=== PATIENT | male | born 1945 | race Caucasian/White ===

== ENCOUNTER 2023-05-27 14:32 | Outpatient (AMB) | payer MEDICARE, SELFPAY ==
--- NOTE | 2023-05-27 09:31 | MHC.OFFVISPS ---
Intake Vital Signs 05/27/23 09:32 Height 5 ft 11 in Weight 173 lb Intake Visit Reasons: depression, CEZAR (generalized anxiety disorder) Gum Remover Required: No Allergies No Known Allergies [No Known Allergies*] Allergy (Unverified 11/23/19 19:15) Medication List - Last Reconciled 05/27/23 by Maryuri Gutierrez APRN alprazolam mg PO amitriptyline 10 mg PO BEDTIME latanoprost 0.005% drsachin ophthalmic (eye) lisinopril 2.5 mg PO DAILY olanzapine 2.5 mg PO BEDTIME sertraline 25 mg PO DAILY sertraline 150 mg PO DAILY tamsulosin 0.4 mg PO DAILY HPI- Psychiatric Chief Complaint: depression, CEZAR (generalized anxiety disorder) HPI Narrative: Pt and report no significant changes; he reports feeling slightly better; he is still avoidant of going out of the house but has gone out at times despite reluctance. they went to [place] to visit their sons for Dustin and spend time with grandson. Pt was able to enjoy seeing sons and grandson. 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 He has taken a break from monthly ECT at [facility] after completing full series and months of maintenance. . He presents with brighter affect; more spontaneous speech; alert, laughing and joking a little in session; smiles more easily. . He and report less anxiety and worry. He is adherent with meds; His BP is stable. He denies SI or HI. he is sleeping well. No dizziness, no fainting. no sedation. no other medical changes Past Psychiatric History: IPLOC- 2020 at [facility], [place] 2019 Depression started last 2017 after returning from [place] visiting his son, he misses them (his sons) and doesn't like to travel, stopped going to the [employer] evening bike class and stopped his normal 3 mile walks, stopped playing golf once a week with his friends, stopped reading daily newspaper and stopped watching most TV news. Previously had been on xanax prn his whole adult life - usually only took 3-4 times a week In 2019 pt had no response to TMS. he had consult with Dr. Castillo and he recommended ECT for depression with psychosis; (delusion about IRS); In interim, I spoke with DR yolie De La Rosa re: TMS and Dr. Castillo about ECT consult and impression; Ppt did 8-9 sessions of ECT and clearly less depressed although he did not agree with that. He was more spontaneous and more social after ECT. He went golfing several times with friend. out of house more; taking walks with reports. FAILED Medication Trials: lamictal - unknown stopped in hospital celexa-ineffective xanax for over 10 years which he managed very wellbutrin- agitated rexulti- ineffective abilify- ineffective zyprexa-ineffective prozac-ineffective lexapro- orthostatic hypotension Trintellix-ineffective Panic attacks: Yes Agoraphobia: Yes Separation anxiety disorder: No Social phobia: Yes Specific phobia: No Hypochondriasis: Yes Body dysmorphic disorder: Yes Obsessive compulsive disorder: No Generalized anxiety: Yes Post traumatic stress disorder: No Acute stress disorder: No Previous psychiatric history: Yes Previous inpatient psychiatric hospitalization: Yes Other previous psychiatric treatment programs: partial hospital program History of suicidal ideation: Yes History of suicide attempt: No Medically hospitalized: No History of self injurious behavior: No History of violence: No Current/previous psychiatrist: sherif Subjective Subjective Subjective Medication Compliance: Yes Side effects from medications: No Review of Systems Medical Review of Systems: unchanged Mental Status Exam Mental Status Exam Patient Appearance: Well Grooomed and Appropriate Patient Orientation: Person, Place, Time and Situation Level of Consciousness: Awake and Appropriate Patient Behavior: Appropriate and Good Eye Contact Mood Description: Withdrawn Affect Description: Anxious Patient Cognition Impaired: No Ability to Follow Directions: Good Speech Pattern: Clear and Long Pauses Memory Description: Intact Hallucinations: None Delusions: Not Present Thought Process: Intact and Goal Oriented Thought Content: positive for Intact and positive for Goal Oriented Judgement: Fair Assessment and Plan Assessment & Plan (1) Generalized anxiety disorder: Code(s): F41.1 - Generalized anxiety disorder (2) Major depressive disorder, recurrent, in partial remission: Status: Acute Code(s): F33.41 - Major depressive disorder, recurrent, in partial remission Plan continue medications as prescribed plan at least one outing per week monitor for recurrence of depression, isolation withdrawal, si Medications: New alprazolam orally take one at 11am and one tablet at 4 PM daily and may take an additional tablet daily if needed; take one at 11am and one tablet at 4 PM daily and may take an additional tablet daily if needed 90 tabs 2RF amitriptyline 10 mg PO BEDTIME 30 tabs 1RF olanzapine 2.5 mg PO BEDTIME 30 tabs 2RF sertraline 25 mg PO DAILY 30 tabs 2RF sertraline 150 mg (3 x 50 mg) PO DAILY 90 tabs 2RF Counseling and coordination of Care Pt. Self Management counseling: Light exposure, Maintenance-social rhythm, Nutrition education and improvement, Sleep hygiene and Behavior activation Medication management counseling: Effectiveness, Side effects, Dosing range, Duration, Drug interaction and Adherence Diagnosis and Prognosis Counseling: Accuracy of diagnosis, Prognosis over time, Impact of diagnosis on life functions, Impact of family relationship, Problematic behaviors secondary to diagnosis and Adequacy of current interventions Details: I spent 30 minutes reviewing the record, seeing the patient and documenting in the medical record. Counseling provided to the patient/caregiver as outlined below. Addressed patient/caregiver concerns regarding current medication regime including effective adherence. Addressed patient/caregiver concerns regarding diagnosis and prognosis including accuracy of diagnosis, prognosis over time, impact of diagnosis. Addressed patient/caregiver concerns regarding impact of recent stressors. [facility] Social History: lives with , 2 adult sons, one grandson Substance History: none Trauma History: none known Coding Level of Care Code Est Pt Level 4 (84915) Diagnoses Generalized anxiety disorder F41.1 Major depressive disorder, recurrent, in partial remission F33.41
== END 2023-05-27 15:39 | disposition home or self-care (01) ==
LOC: HO.HOP 14:32
PROVIDERS: PCP Internal Medicine; Visit Provider Clinical Nurse Specialist Psychiatric/Mental Health
DX: F41.1 Generalized anxiety disorder (principal); F33.41 Major depressive disorder, recurrent, in partial remission
CPT/HCPCS: 99214

== ENCOUNTER → 2023-05-27 14:32 | Outpatient (BNVA) | payer MEDICARE, SELFPAY | PROVIDERS: PCP Internal Medicine; Visit Provider Clinical Nurse Specialist Psychiatric/Mental Health | DX: F41.1 Generalized anxiety disorder (principal); F33.41 Major depressive disorder, recurrent, in partial remission; Z79.899 Other long term (current) drug therapy | CPT/HCPCS: 99212 ==

== ENCOUNTER 2023-07-08 14:14 | Outpatient (AMB) | payer MEDICARE, SELFPAY ==
--- NOTE | 2023-07-08 14:30 | MHC.OFFVISPS ---
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: No Allergies No Known Allergies [No Known Allergies*] Allergy (Unverified 11/23/19 19:15) Medication List - Last Reconciled 07/08/23 by Maryuri Gutierrez APRN alprazolam orally take one at 11am and one tablet at 4 PM daily and may take an additional tablet daily if needed; take one at 11am and one tablet at 4 PM daily and may take an additional tablet daily if needed amitriptyline 10 mg PO BEDTIME latanoprost 0.005% drsachin ophthalmic (eye) lisinopril 2.5 mg PO DAILY olanzapine 2.5 mg PO BEDTIME sertraline 25 mg PO DAILY sertraline 150 mg (3 x 50 mg) PO DAILY tamsulosin 0.4 mg PO DAILY HPI- Psychiatric Chief Complaint: depression HPI Narrative: pt mood fair; increased energy and spontaneity; he still isolates and avoids going out in public; he is less active with chores at home; denies SI or HI; no panic attacks; less worry; pt scored 7 on PHQ9. scored 6 on GAD7. ON moca pt scored 28/30 Past Psychiatric History: IPLOC- 2020 at [facility], [place] 2019 Depression started last 2017 after returning from [place] visiting his son, he misses them (his sons) and doesn't like to travel, stopped going to the [facility] evening bike class and stopped his normal 3 mile walks, stopped playing golf once a week with his friends, stopped reading daily newspaper and stopped watching most TV news. Previously had been on xanax prn his whole adult life - usually only took 3-4 times a week In 2019 pt had no response to TMS. he had consult with Dr. Castillo and he recommended ECT for depression with psychosis; (delusion about IRS); In interim, I spoke with DR yolie De La Rosa re: TMS and Dr. Castillo about ECT consult and impression; Ppt did 8-9 sessions of ECT and clearly less depressed although he did not agree with that. He was more spontaneous and more social after ECT. He went golfing several times with friend. out of house more; taking walks with reports. FAILED Medication Trials: lamictal - unknown stopped in hospital celexa-ineffective xanax for over 10 years which he managed very wellbutrin- agitated rexulti- ineffective abilify- ineffective zyprexa-ineffective prozac-ineffective lexapro- orthostatic hypotension Trintellix-ineffective Subjective Subjective Subjective Medication Compliance: Yes Side effects from medications: No Review of Systems Medical Review of Systems: unchanged Mental Status Exam Mental Status Exam Patient Appearance: Well Grooomed and Appropriate Patient Orientation: Person, Place, Time and Situation Patient Behavior: Appropriate and Avoidant Mood Description: Calm and Withdrawn Affect Description: Calm and Withdrawn Patient Cognition Impaired: No Ability to Follow Directions: Excellent Speech Pattern: Clear and Appropriate Memory Description: Intact Hallucinations: None Delusions: Not Present Thought Process: Intact and Goal Oriented Thought Content: positive for Intact and positive for Goal Oriented Judgement: Fair Assessment and Plan Assessment & Plan (1) Major depressive disorder, recurrent, in partial remission: Status: Acute Code(s): F33.41 - Major depressive disorder, recurrent, in partial remission (2) Panic anxiety syndrome: Status: Acute Code(s): F41.0 - Panic disorder [episodic paroxysmal anxiety] (3) Fatigue: Status: Acute Qualifiers: Fatigue type: unspecified Qualified Code(s): R53.83 - Other fatigue Code(s): R53.83 - Other fatigue Plan continue medications as prescribed labs to rule out side effects and clarify fatigue etiology ekg to rule out side effects and clarify fatigue etiology Medications: New sertraline 25 mg PO DAILY 30 tabs 0RF Refilled alprazolam orally take one at 11am and one tablet at 4 PM daily and may take an additional tablet daily if needed; take one at 11am and one tablet at 4 PM daily and may take an additional tablet daily if needed 90 tabs 2RF sertraline 150 mg (3 x 50 mg) PO DAILY 90 tabs 2RF amitriptyline 10 mg PO BEDTIME 30 tabs 1RF olanzapine 2.5 mg PO BEDTIME 30 tabs 2RF Discontinued sertraline Discontinued Reason: Change Referral Type 25 mg PO DAILY 30 tabs 2RF Orders: Orders Vitamin B12 07/08/23 ECG 12 lead EKG 07/08/23 Z79.899 - Other oysterman (current) drug therapy Comprehensive Met. Panel 07/08/23 Hemoglobin A1c 07/08/23 Counseling and coordination of Care Pt. Self Management counseling: Exercise, Maintenance-social rhythm, Mod caffeine/ETOH intake, Sleep hygiene and Behavior activation Medication management counseling: Effectiveness, Side effects, Dosing range, Duration, Drug interaction and Adherence Diagnosis and Prognosis Counseling: Accuracy of diagnosis, Prognosis over time, Impact of diagnosis on life functions, Impact of family relationship, Problematic behaviors secondary to diagnosis and Adequacy of current interventions Details: I spent 30 minutes reviewing the record, seeing the patient and documenting in the medical record. Counseling provided to the patient/caregiver as outlined below. Addressed patient/caregiver concerns regarding current medication regime including effective adherence. Addressed patient/caregiver concerns regarding diagnosis and prognosis including accuracy of diagnosis, prognosis over time, impact of diagnosis. Addressed patient/caregiver concerns regarding impact of recent stressors. [facility] Social History: lives with , 2 adult sons, one grandson Substance History: none Trauma History: none known Coding Level of Care Code Est Pt Level 4 (58413) Diagnoses Major depressive disorder, recurrent, in partial remission F33.41 Panic anxiety syndrome F41.0 Fatigue, unspecified type R53.83 Fatigue type: unspecified
== END 2023-07-08 16:55 | disposition home or self-care (01) ==
LOC: HO.HOP 14:14
PROVIDERS: PCP Internal Medicine; Visit Provider Clinical Nurse Specialist Psychiatric/Mental Health
DX: F33.41 Major depressive disorder, recurrent, in partial remission (principal); F41.0 Panic disorder [episodic paroxysmal anxiety]; R53.83 Other fatigue
CPT/HCPCS: 99214

== ENCOUNTER 2023-07-08 14:14 | Outpatient (REF) | payer MEDICARE, SELFPAY ==
--- NOTE | 2023-07-08 15:46 | ECG_ITS ---
Test Reason : [facility] Blood Pressure : / mmHG Vent. Rate : 103 BPM Atrial Rate : 103 BPM P-R Int : 164 ms QRS Dur : 078 ms QT Int : 338 ms P-R-T Axes : 065 009 032 degrees QTc Int : 442 ms Sinus tachycardia Otherwise normal ECG When compared with ECG of 29-SEP-2019 10:39, Vent. rate has increased BY 38 BPM QT has lengthened Referred By: Maryuri Gutierrez Electronically Signed By:KAYE MIRANDA
[2023-07-08 17:28] LABS: Estimated Average Glucose 108 mg/dL; Hemoglobin A1c % 5.4 % (<6.0)
[2023-07-08 17:33] LABS: Alanine Aminotransferase 20 U/L (0-40); Albumin Level 4.2 g/dL (3.5-5.0); Alkaline Phosphatase 78 U/L (39-117); Anion Gap 15 (12-20); Aspartate Amino Transferase 21 U/L (5-37); Bilirubin Total 0.9 mg/dL (0.0-1.0); Blood Urea Nitrogen 23 mg/dL (9-16); Calcium 10.2 mg/dL (8.4-10.2); Carbon Dioxide 24 mmol/L (22-29); Chloride 106 mmol/L (96-108); Estimated Glomerular Filt Rate 59; Glucose Random 100 mg/dL (60-115); Potassium 5.2 mmol/L (3.3-5.1); Sodium 140 mmol/L (135-145); Total Protein 7.2 g/dL (6.5-8.0)
[2023-07-08 17:55] LABS: Vitamin B12 731 pg/mL (200-900)
== END 2023-07-08 14:15 | disposition home or self-care (01) ==
LOC: HO.LAB 14:14
PROVIDERS: PCP Internal Medicine; Visit Provider Clinical Nurse Specialist Psychiatric/Mental Health
DX: F33.41 Major depressive disorder, recurrent, in partial remission (principal); F41.0 Panic disorder [episodic paroxysmal anxiety]; Z79.899 Other long term (current) drug therapy
CPT/HCPCS: 36415; 80053; 82607; 83036; 93005; 99212

== ENCOUNTER → 2023-07-08 15:46 | Outpatient (BNV) | payer MEDICARE, SELFPAY | PROVIDERS: PCP Internal Medicine; Visit Provider Internal Medicine | DX: R00.0 Tachycardia, unspecified (principal) | CPT/HCPCS: 93010 ==

== ENCOUNTER 2023-10-12 13:59 | Outpatient (AMB) | payer MEDICARE, SELFPAY ==
--- NOTE | 2023-10-12 14:16 | MHC.OFFVISPS ---
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 Allergies No Known Allergies [No Known Allergies*] Allergy (Unverified 11/23/19 19:15) Medication List - Last Reconciled 10/12/23 by Maryuri Gutierrez APRN alprazolam orally take one at 11am and one tablet at 4 PM daily and may take an additional tablet daily if needed; take one at 11am and one tablet at 4 PM daily and may take an additional tablet daily if needed amitriptyline 10 mg PO BEDTIME latanoprost 0.005% drsachin ophthalmic (eye) lisinopril 2.5 mg PO DAILY olanzapine 2.5 mg PO BEDTIME sertraline 150 mg (3 x 50 mg) PO DAILY sertraline 25 mg PO DAILY tamsulosin 0.4 mg PO DAILY HPI- Psychiatric Chief Complaint: depression HPI Narrative: pt reports not doing much and not going outside; he spends much of his time in his bedroom; He says he did survive his being away for a few days with her Gfs. He ate 3 meals a day; he did miss some of his bedtime medications- he says some nights he fell asleep before taking them and other times he was being rebellious. He says a friend named Elier came to visit him - he used to golf with him; he agreed to makea date to go to the driving range with Elier. Pt taklked more about why he stays in bed or his bedroom; he feels he aged too fast and that his body is disgusting. He feels his muscles are too small. we talked about replacing his negative thoughts about his body with more positive thoughts- he remains hesitant about being able to do this; I looked up latests research on body dysmorphia and there is some evidence that tricyclics help; we agreed to increase the amitriptyline to 20mg at bedtime Past Psychiatric History: IPLOC- 2020 at [facility], [place] 2019 Depression started last 2017 after returning from [place] visiting his son, he misses them (his sons) and doesn't like to travel, stopped going to the [employer] evening bike class and stopped his normal 3 mile walks, stopped playing golf once a week with his friends, stopped reading daily newspaper and stopped watching most TV news. Previously had been on xanax prn his whole adult life - usually only took 3-4 times a week In 2019 pt had no response to TMS. he had consult with Dr. Castillo and he recommended ECT for depression with psychosis; (delusion about IRS); In interim, I spoke with DR yolie De La Rosa re: TMS and Dr. Castillo about ECT consult and impression; Ppt did 8-9 sessions of ECT and clearly less depressed although he did not agree with that. He was more spontaneous and more social after ECT. He went golfing several times with friend. out of house more; taking walks with reports. FAILED Medication Trials: lamictal - unknown stopped in hospital celexa-ineffective xanax for over 10 years which he managed very wellbutrin- agitated rexulti- ineffective abilify- ineffective zyprexa-ineffective prozac-ineffective lexapro- orthostatic hypotension Trintellix-ineffective Subjective Subjective Subjective Medication Compliance: Intermittent Side effects from medications: No Review of Systems Medical Review of Systems: unchanged Mental Status Exam Mental Status Exam Patient Appearance: Well Grooomed and Appropriate Patient Orientation: Person, Place, Time and Situation Level of Consciousness: Awake and Appropriate Patient Behavior: Appropriate and Cooperative Mood Description: Withdrawn and Anxious Affect Description: Withdrawn Patient Cognition Impaired: No Ability to Follow Directions: Good Speech Pattern: Clear Memory Description: Intact Hallucinations: None Delusions: Not Present Thought Process: Intact and Rumination Thought Content: positive for Perseveration and positive for Preoccupation Judgement: Fair Assessment and Plan Assessment & Plan (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: Status: Acute Code(s): F45.22 - Body dysmorphic disorder (2) Panic anxiety syndrome: Status: Acute Code(s): F41.0 - Panic disorder [episodic paroxysmal anxiety] (3) Major depressive disorder, recurrent, in partial remission: Status: Acute Code(s): F33.41 - Major depressive disorder, recurrent, in partial remission Plan decrease zoloft to 50mg in am and 100mg at bedtime increase amitriptyline to 20mg at bedtime Medications: Changed From amitriptyline 10 mg PO BEDTIME 30 tabs 1RF To amitriptyline 20 mg (2 x 10 mg) PO BEDTIME 60 tabs 1RF Refilled alprazolam orally take one at 11am and one tablet at 4 PM daily and may take an additional tablet daily if needed; take one at 11am and one tablet at 4 PM daily and may take an additional tablet daily if needed 90 tabs 2RF sertraline 150 mg (3 x 50 mg) PO DAILY 90 tabs 2RF Counseling and coordination of Care Pt. Self Management counseling: Exercise, Nutrition education and improvement, Cognitive restructuring and General coping skills Medication management counseling: Effectiveness, Side effects, Dosing range, Duration, Drug interaction and Adherence Diagnosis and Prognosis Counseling: Accuracy of diagnosis, Prognosis over time, Impact of diagnosis on life functions, Impact of family relationship, Problematic behaviors secondary to diagnosis and Adequacy of current interventions Details: I spent 45 minutes reviewing the record, seeing the patient and documenting in the medical record. Counseling provided to the patient/caregiver as outlined below. Addressed patient/caregiver concerns regarding current medication regime including effective adherence. Addressed patient/caregiver concerns regarding diagnosis and prognosis including accuracy of diagnosis, prognosis over time, impact of diagnosis. Addressed patient/caregiver concerns regarding impact of recent stressors. [facility] Social History: lives with , 2 adult sons, one grandson Substance History: none Trauma History: none known Coding Level of Care Code Est Pt Level 5 (67536) Diagnoses Body dysmorphic disorder with muscle dysmorphia F45.22 Panic anxiety syndrome F41.0 Major depressive disorder, recurrent, in partial remission F33.41
== END 2023-10-12 15:46 | disposition home or self-care (01) ==
LOC: HO.HOP 13:59
PROVIDERS: PCP Internal Medicine; Visit Provider Clinical Nurse Specialist Psychiatric/Mental Health
DX: F33.41 Major depressive disorder, recurrent, in partial remission (principal); F45.22 Body dysmorphic disorder; F41.0 Panic disorder [episodic paroxysmal anxiety]
CPT/HCPCS: 99215

== ENCOUNTER → 2023-10-12 13:59 | Outpatient (BNVA) | payer MEDICARE, SELFPAY | PROVIDERS: PCP Internal Medicine; Visit Provider Clinical Nurse Specialist Psychiatric/Mental Health | DX: F33.41 Major depressive disorder, recurrent, in partial remission (principal); F45.22 Body dysmorphic disorder; F41.0 Panic disorder [episodic paroxysmal anxiety] | CPT/HCPCS: 99212 ==

== ENCOUNTER 2023-11-26 13:35 | Outpatient (AMB) | payer MEDICARE, SELFPAY ==
--- NOTE | 2023-11-26 13:47 | MHC.OFFVISPS ---
Intake Intake Visit Reasons: depression Care Director Required: No Allergies No Known Allergies [No Known Allergies*] Allergy (Unverified 11/23/19 19:15) Medication List - Last Reconciled 11/26/23 by Maryuri Gutierrez APRN alprazolam orally take one tablet three times a day ( 8am, 1pm, and 6pm ) amitriptyline 20 mg (2 x 10 mg) PO BEDTIME latanoprost 0.005% drps ophthalmic (eye) lisinopril 2.5 mg PO DAILY olanzapine 2.5 mg PO BEDTIME sertraline 150 mg (3 x 50 mg) PO DAILY tamsulosin 0.4 mg PO DAILY HPI- Psychiatric Chief Complaint: depression HPI Narrative: pt reports little change but then goes on to say he and went out to dinner for their anniversary. 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 he still worries about his appearance and his body saying things like he is too skinny and saying he used to be strong; I have encouraged him to increase his protien intake and keep moving - helping with yard work etc. he denies SI or HI. he is often ruminating. Past Psychiatric History: IPLOC- 2020 at [facility], [place] 2019 Depression started last 2017 after returning from [place] visiting his son, he misses them (his sons) and doesn't like to travel, stopped going to the [employer] evening bike class and stopped his normal 3 mile walks, stopped playing golf once a week with his friends, stopped reading daily newspaper and stopped watching most TV news. Previously had been on xanax prn his whole adult life - usually only took 3-4 times a week In 2019 pt had no response to TMS. he had consult with Dr. Castillo and he recommended ECT for depression with psychosis; (delusion about IRS); In interim, I spoke with DR yolie De La Rosa re: TMS and Dr. Castillo about ECT consult and impression; Ppt did 8-9 sessions of ECT and clearly less depressed although he did not agree with that. He was more spontaneous and more social after ECT. He went golfing several times with friend. out of house more; taking walks with reports. FAILED Medication Trials: lamictal - unknown stopped in hospital celexa-ineffective xanax for over 10 years which he managed very wellbutrin- agitated rexulti- ineffective abilify- ineffective zyprexa-ineffective prozac-ineffective lexapro- orthostatic hypotension Trintellix-ineffective Subjective Subjective Subjective Medication Compliance: Yes Side effects from medications: No Review of Systems Medical Review of Systems: unchanged Mental Status Exam Mental Status Exam Patient Appearance: Well Grooomed and Appropriate Patient Orientation: Person, Place, Time and Situation Level of Consciousness: Awake, Appropriate and Alert Patient Behavior: Appropriate and Cooperative Mood Description: Anxious and Sad Affect Description: Anxious and Flat Patient Cognition Impaired: No Ability to Follow Directions: Good Speech Pattern: Perseverating, Impoverished, Coherent and Mumbled Memory Description: Intact Hallucinations: None Delusions: Present (body dysmorphic beliefs ) Thought Process: Intact and Goal Oriented Thought Content: positive for Intact, positive for Goal Oriented and positive for Loose Associations Judgement: Fair Assessment and Plan Assessment & Plan (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: Status: Acute Code(s): F45.22 - Body dysmorphic disorder (2) Panic anxiety syndrome: Status: Acute Code(s): F41.0 - Panic disorder [episodic paroxysmal anxiety] (3) Major depressive disorder, recurrent, in partial remission: Status: Acute Code(s): F33.41 - Major depressive disorder, recurrent, in partial remission Plan rule out OCD schedule xanax 0.5mg tid cotinue zoloft and zyprexa Medications: Changed From alprazolam orally take one at 11am and one tablet at 4 PM daily and may take an additional tablet daily if needed; take one at 11am and one tablet at 4 PM daily and may take an additional tablet daily if needed 90 tabs 2RF To alprazolam orally take one tablet three times a day ( 8am, 1pm, and 6pm ) 90 tabs 2RF Refilled sertraline 150 mg (3 x 50 mg) PO DAILY 90 tabs 2RF olanzapine 2.5 mg PO BEDTIME 30 tabs 2RF Counseling and coordination of Care Pt. Self Management counseling: Maintenance-social rhythm, Sleep hygiene, Behavior activation and Cognitive restructuring Medication management counseling: Effectiveness, Side effects, Dosing range, Duration, Drug interaction and Adherence Diagnosis and Prognosis Counseling: Accuracy of diagnosis, Prognosis over time, Impact of diagnosis on life functions, Impact of family relationship, Problematic behaviors secondary to diagnosis and Adequacy of current interventions Details: I spent 45 minutes reviewing the record, seeing the patient and documenting in the medical record. Counseling provided to the patient/caregiver as outlined below. Addressed patient/caregiver concerns regarding current medication regime including effective adherence. Addressed patient/caregiver concerns regarding diagnosis and prognosis including accuracy of diagnosis, prognosis over time, impact of diagnosis. Addressed patient/caregiver concerns regarding impact of recent stressors. [facility] Social History: lives with , 2 adult sons, one grandson Substance History: none Trauma History: none known Coding Level of Care Code Est Pt Level 4 (66919) Therapy 30m w/E&M (81366) Diagnoses Body dysmorphic disorder with muscle dysmorphia F45.22 Panic anxiety syndrome F41.0 Major depressive disorder, recurrent, in partial remission F33.41
== END 2023-11-26 14:52 | disposition home or self-care (01) ==
LOC: HO.HOP 13:35
PROVIDERS: PCP Internal Medicine; Visit Provider Clinical Nurse Specialist Psychiatric/Mental Health
DX: F45.22 Body dysmorphic disorder (principal); F41.0 Panic disorder [episodic paroxysmal anxiety]; F33.41 Major depressive disorder, recurrent, in partial remission
CPT/HCPCS: 90833; 99214

== ENCOUNTER → 2023-11-26 13:35 | Outpatient (BNVA) | payer MEDICARE, SELFPAY | PROVIDERS: PCP Internal Medicine; Visit Provider Clinical Nurse Specialist Psychiatric/Mental Health | DX: F45.22 Body dysmorphic disorder (principal); F33.41 Major depressive disorder, recurrent, in partial remission; F41.0 Panic disorder [episodic paroxysmal anxiety] | CPT/HCPCS: 99212 ==

== ENCOUNTER 2024-01-13 13:30 | Outpatient (AMB) | payer MEDICARE, SELFPAY ==
--- NOTE | 2024-01-13 13:07 | MHC.OFFVISPS ---
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 Required: No Allergies No Known Allergies [No Known Allergies*] Allergy (Unverified 11/23/19 19:15) Medication List - Last Reconciled 01/13/24 by Maryuri Gutierrez APRN alprazolam orally take one tablet three times a day ( 8am, 1pm, and 6pm ) amitriptyline 20 mg (2 x 10 mg) PO BEDTIME latanoprost 0.005% drps ophthalmic (eye) lisinopril 2.5 mg PO DAILY olanzapine 2.5 mg PO BEDTIME sertraline 150 mg (3 x 50 mg) PO DAILY tamsulosin 0.4 mg PO DAILY HPI- Psychiatric Chief Complaint: depression HPI Narrative: [facility] the first time in years; pt drove self. his depression is improving; his anxiety is moderate but slightly lower; he is helping his with house hold chores more; he still does not feel comfortable being around others; he struggles with body dysmorphic thoughts and socail anxiety. no SI or HI. Past Psychiatric History: IPLOC- 2020 at [facility], [place] 2019 Depression started last 2017 after returning from [place] visiting his son, he misses them (his sons) and doesn't like to travel, stopped going to the [employer] evening bike class and stopped his normal 3 mile walks, stopped playing golf once a week with his friends, stopped reading daily newspaper and stopped watching most TV news. Previously had been on xanax prn his whole adult life - usually only took 3-4 times a week In 2019 pt had no response to TMS. he had consult with Dr. Castillo and he recommended ECT for depression with psychosis; (delusion about IRS); In interim, I spoke with DR yolie De La Rosa re: TMS and Dr. Castillo about ECT consult and impression; Ppt did 8-9 sessions of ECT and clearly less depressed although he did not agree with that. He was more spontaneous and more social after ECT. He went golfing several times with friend. out of house more; taking walks with reports. FAILED Medication Trials: lamictal - unknown stopped in hospital celexa-ineffective xanax for over 10 years which he managed very wellbutrin- agitated rexulti- ineffective abilify- ineffective zyprexa-ineffective prozac-ineffective lexapro- orthostatic hypotension Trintellix-ineffective Subjective Subjective Subjective Medication Compliance: Yes Side effects from medications: No Review of Systems Medical Review of Systems: unchanged Mental Status Exam Mental Status Exam Patient Appearance: Well Grooomed and Appropriate Patient Orientation: Person, Place, Time and Situation Level of Consciousness: Awake and Appropriate Patient Behavior: Appropriate and Cooperative Mood Description: Anxious Affect Description: Anxious Patient Cognition Impaired: No Ability to Follow Directions: Good Speech Pattern: Clear Memory Description: Intact Hallucinations: None Delusions: Not Present Thought Process: Intact Thought Content: positive for Intact and positive for [place] Judgement: Good Assessment and Plan Assessment & Plan (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: Status: Acute Code(s): F45.22 - Body dysmorphic disorder (2) Major depressive disorder, recurrent, in partial remission: Status: Acute Code(s): F33.41 - Major depressive disorder, recurrent, in partial remission (3) Panic anxiety syndrome: Status: Acute Code(s): F41.0 - Panic disorder [episodic paroxysmal anxiety] Plan continue zoloft 100mg in am and 50mg at bedtime xanax 0.5 mg tid olanzepine 2.5 mg at bedtime amitriptyline 20mg at bedtime Medications: Refilled alprazolam orally take one tablet three times a day ( 8am, 1pm, and 6pm ) 90 tabs 2RF sertraline 150 mg (3 x 50 mg) PO DAILY 90 tabs 2RF amitriptyline 20 mg (2 x 10 mg) PO BEDTIME 180 tabs 1RF olanzapine 2.5 mg PO BEDTIME 30 tabs 2RF Counseling and coordination of Care Pt. Self Management counseling: Maintenance-social rhythm, Sleep hygiene, Behavior activation, General coping skills and Problem solving Medication management counseling: Effectiveness, Side effects, Dosing range, Duration, Drug interaction and Adherence Diagnosis and Prognosis Counseling: Accuracy of diagnosis, Prognosis over time, Impact of diagnosis on life functions, Impact of family relationship, Problematic behaviors secondary to diagnosis and Adequacy of current interventions Details: I spent 40 minutes reviewing the record, seeing the patient and documenting in the medical record. Counseling provided to the patient/caregiver as outlined below. Addressed patient/caregiver concerns regarding current medication regime including effective adherence. Addressed patient/caregiver concerns regarding diagnosis and prognosis including accuracy of diagnosis, prognosis over time, impact of diagnosis. Addressed patient/caregiver concerns regarding impact of recent stressors. PFSH Social History: lives with , 2 adult sons, one grandson Substance History: none Trauma History: none known Coding Level of Care Code Est Pt Level 4 (64958) Diagnoses Body dysmorphic disorder with muscle dysmorphia F45.22 Major depressive disorder, recurrent, in partial remission F33.41 Panic anxiety syndrome F41.0
== END 2024-01-13 14:01 | disposition home or self-care (01) ==
LOC: HO.HOP 13:30
PROVIDERS: PCP Internal Medicine; Visit Provider Clinical Nurse Specialist Psychiatric/Mental Health
DX: F45.22 Body dysmorphic disorder (principal); F33.41 Major depressive disorder, recurrent, in partial remission; F41.0 Panic disorder [episodic paroxysmal anxiety]
CPT/HCPCS: 99214

== ENCOUNTER → 2024-01-13 13:30 | Outpatient (BNVA) | payer MEDICARE, SELFPAY | PROVIDERS: PCP Internal Medicine; Visit Provider Clinical Nurse Specialist Psychiatric/Mental Health | DX: F45.22 Body dysmorphic disorder (principal); F33.41 Major depressive disorder, recurrent, in partial remission; F41.0 Panic disorder [episodic paroxysmal anxiety] | CPT/HCPCS: 99212 ==

== ENCOUNTER 2024-02-22 14:52 | Outpatient (AMB) | payer MEDICARE, SELFPAY ==
--- NOTE | 2024-02-22 15:14 | MHC.OFFVISPS ---
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 Required: No Allergies No Known Allergies [No Known Allergies*] Allergy (Unverified 11/23/19 19:15) Medication List - Last Reconciled 02/22/24 by Maryuri Gutierrez APRN alprazolam orally take one tablet three times a day ( 8am, 1pm, and 6pm ) amitriptyline 20 mg (2 x 10 mg) PO BEDTIME latanoprost 0.005% drsachin ophthalmic (eye) lisinopril 2.5 mg PO DAILY olanzapine 2.5 mg PO BEDTIME sertraline 150 mg (3 x 50 mg) PO DAILY tamsulosin 0.4 mg PO DAILY HPI- Psychiatric Chief Complaint: depression HPI Narrative: Rex drove himself here to day; he is neatly dressed and well groomed; affect brighter; PHQ9= 5 and GAD7= 4. he reports he is more active around house and tries to be more helpful wth his ; he enjoyed time with his son and grandson. no SI or HI. he still avoids public places or crowds because he says he feels his body /looks are inadequate in some way. Past Psychiatric History: IPLOC- 2020 at [facility], [place] 2019 Depression started last 2017 after returning from [place] visiting his son, he misses them (his sons) and doesn't like to travel, stopped going to the [employer] evening bike class and stopped his normal 3 mile walks, stopped playing golf once a week with his friends, stopped reading daily newspaper and stopped watching most TV news. Previously had been on xanax prn his whole adult life - usually only took 3-4 times a week In 2019 pt had no response to TMS. he had consult with Dr. Castillo and he recommended ECT for depression with psychosis; (delusion about IRS); In interim, I spoke with DR yolie De La Rosa re: TMS and Dr. Castillo about ECT consult and impression; Ppt did 8-9 sessions of ECT and clearly less depressed although he did not agree with that. He was more spontaneous and more social after ECT. He went golfing several times with friend. out of house more; taking walks with reports. FAILED Medication Trials: lamictal - unknown stopped in hospital celexa-ineffective xanax for over 10 years which he managed very wellbutrin- agitated rexulti- ineffective abilify- ineffective zyprexa-ineffective prozac-ineffective lexapro- orthostatic hypotension Trintellix-ineffective Subjective Subjective Subjective Medication Compliance: Yes Side effects from medications: No Review of Systems Medical Review of Systems: unchanged Mental Status Exam Mental Status Exam Patient Appearance: Well Grooomed and Appropriate Patient Orientation: Person, Place, Time and Situation Level of Consciousness: Awake, Appropriate and Alert Patient Behavior: Appropriate, Talkative and Cooperative Mood Description: Happy and Anxious Affect Description: Happy and Anxious Patient Cognition Impaired: No Ability to Follow Directions: Good Speech Pattern: Clear, Appropriate and Spontaneous Speech Memory Description: Intact Hallucinations: None Delusions: Present (body dysmorphic thoughts ) Thought Process: Intact and Goal Oriented Thought Content: positive for Intact and positive for Goal Oriented Judgement: Fair Assessment and Plan Assessment & Plan (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: Status: Acute Code(s): F45.22 - Body dysmorphic disorder (2) Panic anxiety syndrome: Status: Acute Code(s): F41.0 - Panic disorder [episodic paroxysmal anxiety] (3) Major depressive disorder, recurrent, in partial remission: Status: Acute Code(s): F33.41 - Major depressive disorder, recurrent, in partial remission Plan Continue medication as below return in 6-8 weeks Medications: Refilled alprazolam orally take one tablet three times a day ( 8am, 1pm, and 6pm ) 90 tabs 2RF olanzapine 2.5 mg PO BEDTIME 30 tabs 2RF amitriptyline 20 mg (2 x 10 mg) PO BEDTIME 180 tabs 1RF sertraline 150 mg (3 x 50 mg) PO DAILY 90 tabs 2RF Counseling and coordination of Care Pt. Self Management counseling: Maintenance-social rhythm, Mod caffeine/ETOH intake, Sleep hygiene, Behavior activation, Cognitive restructuring, General coping skills and Problem solving Medication management counseling: Effectiveness, Side effects, Dosing range, Duration, Drug interaction and Adherence Diagnosis and Prognosis Counseling: Accuracy of diagnosis, Prognosis over time, Impact of diagnosis on life functions, Impact of family relationship, Problematic behaviors secondary to diagnosis and Adequacy of current interventions Details: I spent 40 minutes reviewing the record, seeing the patient and documenting in the medical record. Counseling provided to the patient/caregiver as outlined below. Addressed patient/caregiver concerns regarding current medication regime including effective adherence. Addressed patient/caregiver concerns regarding diagnosis and prognosis including accuracy of diagnosis, prognosis over time, impact of diagnosis. Addressed patient/caregiver concerns regarding impact of recent stressors. [facility] Social History: lives with , 2 adult sons, one grandson Substance History: none Trauma History: none known Coding Level of Care Code Est Pt Level 4 (72424) Diagnoses Body dysmorphic disorder with muscle dysmorphia F45.22 Panic anxiety syndrome F41.0 Major depressive disorder, recurrent, in partial remission F33.41
== END 2024-02-22 17:36 | disposition home or self-care (01) ==
LOC: HO.HOP 14:52
PROVIDERS: PCP Internal Medicine; Visit Provider Clinical Nurse Specialist Psychiatric/Mental Health
DX: F45.22 Body dysmorphic disorder (principal); F41.0 Panic disorder [episodic paroxysmal anxiety]; F33.41 Major depressive disorder, recurrent, in partial remission
CPT/HCPCS: 99214

== ENCOUNTER → 2024-02-22 14:52 | Outpatient (BNVA) | payer MEDICARE, SELFPAY | PROVIDERS: PCP Internal Medicine; Visit Provider Clinical Nurse Specialist Psychiatric/Mental Health | DX: F45.22 Body dysmorphic disorder (principal); F33.41 Major depressive disorder, recurrent, in partial remission; F41.0 Panic disorder [episodic paroxysmal anxiety] | CPT/HCPCS: 99212 ==

== ENCOUNTER 2024-05-04 13:53 | Outpatient (AMB) | payer MEDICARE, SELFPAY ==
--- NOTE | 2024-05-04 14:12 | MHC.OFFVISPS ---
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 pt reports improvement. PHQ9= 8 and GAD7= 8. No SI or Hi. He is more active at home; he is slightly more social with family and friends. He is sleeping well. he continues in therapy Past Psychiatric History: IPLOC- 2020 at [facility], [place] 2019 Depression started last 2017 after returning from [place] visiting his son, he misses them (his sons) and doesn't like to travel, stopped going to the [employer] evening bike class and stopped his normal 3 mile walks, stopped playing golf once a week with his friends, stopped reading daily newspaper and stopped watching most TV news. Previously had been on xanax prn his whole adult life - usually only took 3-4 times a week In 2019 pt had no response to TMS. he had consult with Dr. Castillo and he recommended ECT for depression with psychosis; (delusion about IRS); In interim, I spoke with DR yolie De La Rosa re: TMS and Dr. Castillo about ECT consult and impression; Ppt did 8-9 sessions of ECT and clearly less depressed although he did not agree with that. He was more spontaneous and more social after ECT. He went golfing several times with friend. out of house more; taking walks with reports. FAILED Medication Trials: lamictal - unknown stopped in hospital celexa-ineffective xanax for over 10 years which he managed very wellbutrin- agitated rexulti- ineffective abilify- ineffective zyprexa-ineffective prozac-ineffective lexapro- orthostatic hypotension Trintellix-ineffective Subjective Subjective Subjective Medication Compliance: Yes Side effects from medications: No Review of Systems Medical Review of Systems: unchanged Mental Status Exam Mental Status Exam Patient Appearance: Well Grooomed Patient Orientation: Person, Place and Situation Level of Consciousness: Awake and Appropriate Patient Behavior: Appropriate Mood Description: Anxious Affect Description: Anxious Patient Cognition Impaired: No Ability to Follow Directions: Good Speech Pattern: Clear Memory Description: Intact Hallucinations: None Delusions: Not Present Thought Process: Intact Thought Content: positive for Intact Judgement: Good Assessment and Plan Assessment & Plan (1) Major depressive disorder, recurrent, in partial remission: Status: Acute Code(s): F33.41 - Major depressive disorder, recurrent, in partial remission (2) Panic anxiety syndrome: Status: Acute Code(s): F41.0 - Panic disorder [episodic paroxysmal anxiety] Plan continue with medications as per below return in 2 months Medications: Changed From alprazolam orally take one tablet three times a day ( 8am, 1pm, and 6pm ) 90 tabs 2RF To alprazolam orally take one tablet three times a day ( 8am, 1pm, and 6pm ) 90 tabs 2RF Refilled amitriptyline 20 mg (2 x 10 mg) PO BEDTIME 180 tabs 1RF sertraline 150 mg (3 x 50 mg) PO DAILY 90 tabs 2RF olanzapine 2.5 mg PO BEDTIME 30 tabs 2RF Counseling and coordination of Care Pt. Self Management counseling: Maintenance-social rhythm, Mod caffeine/ETOH intake, Nutrition education and improvement and Behavior activation Medication management counseling: Effectiveness, Side effects, Dosing range, Duration, Drug interaction and Adherence Diagnosis and Prognosis Counseling: Accuracy of diagnosis, Prognosis over time, Impact of diagnosis on life functions, Impact of family relationship, Problematic behaviors secondary to diagnosis and Adequacy of current interventions Details: I spent 35 minutes reviewing the record, seeing the patient and documenting in the medical record. Counseling provided to the patient/caregiver as outlined below. Addressed patient/caregiver concerns regarding current medication regime including effective adherence. Addressed patient/caregiver concerns regarding diagnosis and prognosis including accuracy of diagnosis, prognosis over time, impact of diagnosis. Addressed patient/caregiver concerns regarding impact of recent stressors. PFSH Social History: lives with , 2 adult sons, one grandson Substance History: none Trauma History: none known Coding Level of Care Code Est Pt Level 4 (66170) Diagnoses Major depressive disorder, recurrent, in partial remission F33.41 Panic anxiety syndrome F41.0
== END 2024-05-04 14:52 | disposition home or self-care (01) ==
LOC: HO.HOP 13:53
PROVIDERS: PCP Internal Medicine; Visit Provider Clinical Nurse Specialist Psychiatric/Mental Health
DX: F33.41 Major depressive disorder, recurrent, in partial remission (principal); F41.0 Panic disorder [episodic paroxysmal anxiety]
CPT/HCPCS: 99214

== ENCOUNTER → 2024-05-04 13:53 | Outpatient (BNVA) | payer MEDICARE, SELFPAY | PROVIDERS: PCP Internal Medicine; Visit Provider Clinical Nurse Specialist Psychiatric/Mental Health | DX: F33.41 Major depressive disorder, recurrent, in partial remission (principal); F41.0 Panic disorder [episodic paroxysmal anxiety] | CPT/HCPCS: 99212 ==

== ENCOUNTER 2024-08-31 14:38 | Outpatient (AMB) | payer MEDICARE, SELFPAY ==
--- NOTE | 2024-08-31 14:57 | A.OFFPSYCH_ITS ---
Intake Intake Visit Reasons: depression Collision Estimator Required: No Allergies No Known Allergies (No Known Allergies*) Allergy (Unverified 11/23/19 19:15) Medication List - Last Reconciled 08/31/24 by Maryuri Gutierrez APRN alprazolam orally take one tablet three times a day ( 8am, 1pm, and 6pm ) amitriptyline 20 mg (2 x 10 mg) PO BEDTIME latanoprost 0.005% drps ophthalmic (eye) lisinopril 2.5 mg PO DAILY olanzapine 2.5 mg PO BEDTIME sertraline 150 mg (3 x 50 mg) PO DAILY tamsulosin 0.4 mg PO DAILY HPI- Psychiatric Chief Complaint: depression HPI Narrative: pt is here for follow up re: depression, body dysmorphic syndrome, panic and anxiety. Pt reports more isolative,not showering, not shaving, feels he doesn't have any clothing to wear that he likes, feels he lost weight and looks weak; he doesn't want to see his body; he does not go to family events or spend times with sons because he doesn't want then to see him inhis weak condition. He has not been taking the alprazolam consistently; He states he takes the other meds consistently; he does have some mild dizziness when standing quickly; reports decrease appetite, decrease in activities. He denies SI or HI. His PHQ9= 8 and his GAD7 = 10. He and want to get second opinion at [facility] which i very much support. He will have phone intake tomorrow. We reviewed his history of treatments. He did full course of TMS in 2019 with Devora De La Rosa MD. He did 8 treatemnets of ECT in 2019 but then refused to continue. He was hospitalized at [facility] and completed a full course of ECT and continued with maintenance outpt ECT for 6 months January 2024 through June 2023. He responded well initially to ECT but retuned to intrusive negative thoughts about his body and more isolation ever since ECT stopped. He is improved since 2019 but not functioning well consisitently. Past Psychiatric History: IPLOC- 2020 at [facility], [place] 2018, [facility] 2019 Depression started last 2017 after returning from [place] visiting his son, he misses them (his sons) and doesn't like to travel, stopped going to the [employer] evening bike class and stopped his normal 3 mile walks, stopped playing golf once a week with his friends, stopped reading daily newspaper and stopped watching most TV news. Previously had been on xanax prn his whole adult life - usually only took 3-4 times a week In 2019 pt had no response to TMS. he had consult with Dr. Castillo and he recommended ECT for depression with psychosis; (delusion about IRS); In interim, I spoke with DR yolie De La Rosa re: TMS and Dr. Castillo about ECT consult and impression; Pt did 8-9 sessions of ECT and clearly less depressed although he did not agree with that. He was more spontaneous and more social after ECT. He went golfing several times with friend. out of house more; taking walks with reports. FAILED Medication Trials: lamictal - unknown stopped in hospital celexa-ineffective xanax for over 10 years which he managed very wellbutrin- agitated rexulti- ineffective abilify- ineffective zyprexa-ineffective prozac-ineffective lexapro- orthostatic hypotension Trintellix-ineffective Subjective Subjective Subjective Medication Compliance: Yes Side effects from medications: No Review of Systems Medical Review of Systems: unchanged Mental Status Exam Mental Status Exam Patient Appearance: Well Grooomed Patient Orientation: Person, Place and Situation Level of Consciousness: Awake and Appropriate Patient Behavior: Appropriate Mood Description: Anxious and Flat Affect Description: Anxious and Flat Patient Cognition Impaired: No Ability to Follow Directions: Good Speech Pattern: Clear Memory Description: Intact Hallucinations: None Delusions: Not Present Thought Process: Intact Thought Content: positive for Intact and positive for Poverty of Content Judgement: Fair Assessment and Plan Assessment & Plan (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: Status: Acute Code(s): F45.22 - Body dysmorphic disorder (2) Panic anxiety syndrome: Status: Acute Code(s): F41.0 - Panic disorder [episodic paroxysmal anxiety] (3) Major depressive disorder, recurrent, in partial remission: Status: Acute Code(s): F33.41 - Major depressive disorder, recurrent, in partial remission Plan support [facility] opinion at [facility] urged patient to take the alprazolam 3 times a day as he has gotten benefir from it of note when zolft increase pt had severe syncopal episodes Medications: Refilled amitriptyline 20 mg (2 x 10 mg) PO BEDTIME 180 tabs 1RF sertraline 150 mg (3 x 50 mg) PO DAILY 90 tabs 2RF alprazolam orally take one tablet three times a day ( 8am, 1pm, and 6pm ) 90 tabs 2RF olanzapine 2.5 mg PO BEDTIME 30 tabs 2RF Counseling and coordination of Care Pt. Self Management counseling: Exercise, Maintenance-social rhythm, Mod caffeine/ETOH intake, Nutrition education and improvement, Sleep hygiene, General coping skills and Problem solving Medication management counseling: Effectiveness, Side effects, Dosing range, Duration, Drug interaction and Adherence Diagnosis and Prognosis Counseling: Accuracy of diagnosis, Prognosis over time, Impact of diagnosis on life functions, Impact of family relationship, Problematic behaviors secondary to diagnosis and Adequacy of current interventions Details: I spent 40 minutes reviewing the record, seeing the patient and documenting in the medical record. Counseling provided to the patient/caregiver as outlined below. Addressed patient/caregiver concerns regarding current medication regime including effective adherence. Addressed patient/caregiver concerns regarding diagnosis and prognosis including accuracy of diagnosis, prognosis over time, impact of diagnosis. Addressed patient/caregiver concerns regarding impact of recent stressors. [facility] Social History: lives with , 2 adult sons, one grandson Substance History: none Trauma History: none known Coding Level of Care Code Est Pt Level 4 (58623) Diagnoses Body dysmorphic disorder with muscle dysmorphia F45.22 Panic anxiety syndrome F41.0 Major depressive disorder, recurrent, in partial remission F33.41
== END 2024-08-31 16:43 | disposition home or self-care (01) ==
LOC: HO.HOP 14:38
PROVIDERS: PCP Internal Medicine; Visit Provider Clinical Nurse Specialist Psychiatric/Mental Health
DX: F45.22 Body dysmorphic disorder (principal); F41.0 Panic disorder [episodic paroxysmal anxiety]; F33.41 Major depressive disorder, recurrent, in partial remission
CPT/HCPCS: 99214

== ENCOUNTER → 2024-08-31 14:38 | Outpatient (BNVA) | payer MEDICARE, SELFPAY | PROVIDERS: PCP Internal Medicine; Visit Provider Clinical Nurse Specialist Psychiatric/Mental Health | DX: F45.22 Body dysmorphic disorder (principal); F41.0 Panic disorder [episodic paroxysmal anxiety]; F33.41 Major depressive disorder, recurrent, in partial remission | CPT/HCPCS: 99212 ==

== ENCOUNTER 2024-10-17 14:28 | Outpatient (AMB) | payer MEDICARE, SELFPAY ==
--- NOTE | 2024-10-17 14:31 | MHC.OFFVISPS ---
Intake Intake Visit Reasons: depression Advertising Specialist Required: No Allergies No Known Allergies (No Known Allergies*) Allergy (Unverified 11/23/19 19:15) Medication List - Last Reconciled 10/17/24 by Maryuri Gutierrez APRN alprazolam orally take one tablet three times a day ( 8am, 1pm, and 6pm ) amitriptyline 20 mg (2 x 10 mg) PO BEDTIME latanoprost 0.005% drps ophthalmic (eye) lisinopril 2.5 mg PO DAILY olanzapine 2.5 mg PO BEDTIME sertraline 150 mg (3 x 50 mg) PO DAILY tamsulosin 0.4 mg PO DAILY HPI- Psychiatric Chief Complaint: depression HPI Narrative: pt is here for follow up re: depression, body dysmorphic syndrome, panic and anxiety. Pt reports he is less isolative, he is attending to ADLS more. He is out of bed more. He is outside the house more, mostly in the yard. He does go for short walks around the neighborhood. Denny recently visited with son and grandson who is 2.5 yrs old. He smiles brightly when talking about his grandson. He is taking he alprazolam more consistently; He states he takes the other meds consistently; he does have some mild dizziness when standing quickly; He is eating and hydrating better. He is driving and helping his more often. His PHQ9=4 and his GAD7=4. He and waiting to angeline from [facility] for consultation for second opinion. Histroical information including med trials and tx below sent to [facility]; TW spoke to Rosalina from [facility] in interim. We reviewed his history of treatments. He did full course of TMS in 2019 with Devora De La Rosa MD. He did 8 treatemnets of ECT in 2019 but then refused to continue. He was hospitalized at [facility] and completed a full course of ECT and continued with maintenance outpt ECT for 6 months January 2024 through June 2023. He responded well initially to ECT but returned to intrusive negative thoughts about his body and more isolation ever since ECT stopped. He is improved since 2019 but not functioning at baseline Past Psychiatric History: IPLOC- 2020 at [facility], [place] 2019, [facility] [place] 2019 Depression started last 2017 after returning from [place] visiting his son, he misses them (his sons) and doesn't like to travel, stopped going to the [employer] evening bike class and stopped his normal 3 mile walks, stopped playing golf once a week with his friends, stopped reading daily newspaper and stopped watching most TV news. Previously had been on xanax prn his whole adult life - usually only took 3-4 times a week In 2019 pt had no response to TMS. he had consult with Dr. Castillo and he recommended ECT for depression with psychosis; (delusion about IRS); In interim, I spoke with DR yolie De La Rosa re: TMS and Dr. Castillo about ECT consult and impression; Pt did 8-9 sessions of ECT and clearly less depressed although he did not agree with that. He was more spontaneous and more social after ECT. He went golfing several times with friend. out of house more; taking walks with reports. FAILED Medication Trials: lamictal - unknown stopped in hospital celexa-ineffective xanax for over 10 years which he managed very wellbutrin- agitated rexulti- ineffective abilify- ineffective zyprexa-ineffective prozac-ineffective lexapro- orthostatic hypotension Trintellix-ineffective Subjective Subjective Subjective Medication Compliance: Yes Side effects from medications: No Review of Systems Medical Review of Systems: unchanged Mental Status Exam Mental Status Exam Patient Appearance: Well Grooomed and Appropriate Patient Orientation: Person, Place and Situation Level of Consciousness: Awake and Appropriate Patient Behavior: Appropriate, Cooperative and Good Eye Contact Mood Description: Happy, Cheerful and Anxious (mild) Affect Description: Happy, Appropriate, Cheerful, Anxious and Flat Patient Cognition Impaired: No Ability to Follow Directions: Good Speech Pattern: Clear, Appropriate and Coherent Memory Description: Intact Hallucinations: None Delusions: Not Present Thought Process: Intact Thought Content: positive for Intact and positive for Poverty of Content Judgement: Good Assessment and Plan Assessment & Plan (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: Status: Acute Code(s): F45.22 - Body dysmorphic disorder (2) Panic anxiety syndrome: Status: Acute Code(s): F41.0 - Panic disorder [episodic paroxysmal anxiety] (3) Major depressive disorder, recurrent, in partial remission: Status: Acute Code(s): F33.41 - Major depressive disorder, recurrent, in partial remission Plan support [facility] opinion at [facility] urged patient to take the alprazolam 3 times a day as he has gotten benefit from it of note when zolft increase pt had severe syncopal episodes Medications: Refilled amitriptyline 20 mg (2 x 10 mg) PO BEDTIME 180 tabs 1RF olanzapine 2.5 mg PO BEDTIME 30 tabs 2RF sertraline 150 mg (3 x 50 mg) PO DAILY 90 tabs 2RF alprazolam orally take one tablet three times a day ( 8am, 1pm, and 6pm ) 90 tabs 2RF Counseling and coordination of Care Pt. Self Management counseling: Exercise, Maintenance-social rhythm, Mod caffeine/ETOH intake, Nutrition education and improvement, Sleep hygiene, General coping skills and Problem solving Medication management counseling: Effectiveness, Side effects, Dosing range, Duration, Drug interaction and Adherence Diagnosis and Prognosis Counseling: Accuracy of diagnosis, Prognosis over time, Impact of diagnosis on life functions, Impact of family relationship, Problematic behaviors secondary to diagnosis and Adequacy of current interventions Details: I spent 45 minutes reviewing the record, seeing the patient and documenting in the medical record. Counseling provided to the patient/caregiver as outlined below. Addressed patient/caregiver concerns regarding current medication regime including effective adherence. Addressed patient/caregiver concerns regarding diagnosis and prognosis including accuracy of diagnosis, prognosis over time, impact of diagnosis. Addressed patient/caregiver concerns regarding impact of recent stressors. [facility] Social History: lives with , 2 adult sons, one grandson Substance History: none Trauma History: none known Coding Level of Care Code Est Pt Level 5 (57748) Diagnoses Body dysmorphic disorder with muscle dysmorphia F45.22 Panic anxiety syndrome F41.0 Major depressive disorder, recurrent, in partial remission F33.41
== END 2024-10-17 14:56 | disposition home or self-care (01) ==
LOC: HO.HOP 14:28
PROVIDERS: PCP Internal Medicine; Visit Provider Clinical Nurse Specialist Psychiatric/Mental Health
DX: F45.22 Body dysmorphic disorder (principal); F41.0 Panic disorder [episodic paroxysmal anxiety]; F33.41 Major depressive disorder, recurrent, in partial remission
CPT/HCPCS: 99215

== ENCOUNTER → 2024-10-17 14:28 | Outpatient (BNVA) | payer MEDICARE, SELFPAY | PROVIDERS: PCP Internal Medicine; Visit Provider Clinical Nurse Specialist Psychiatric/Mental Health | DX: F45.22 Body dysmorphic disorder (principal); F41.0 Panic disorder [episodic paroxysmal anxiety]; F33.41 Major depressive disorder, recurrent, in partial remission | CPT/HCPCS: 99212 ==

== ENCOUNTER 2024-12-19 13:35 | Outpatient (AMB) | payer MEDICARE, SELFPAY ==
--- NOTE | 2024-12-19 13:46 | MHC.OFFVISPS ---
Intake Intake Visit Reasons: depression Human Resources Project Manager Required: No Allergies No Known Allergies (No Known Allergies*) Allergy (Unverified 11/23/19 19:15) Medication List - Last Reconciled 12/19/24 by Maryuri Gutierrez APRN alprazolam orally take one tablet three times a day ( 8am, 1pm, and 6pm ) amitriptyline 20 mg (2 x 10 mg) PO BEDTIME latanoprost 0.005% drps ophthalmic (eye) lisinopril 2.5 mg PO DAILY olanzapine 2.5 mg PO BEDTIME sertraline 150 mg (3 x 50 mg) PO DAILY tamsulosin 0.4 mg PO DAILY HPI- Psychiatric Chief Complaint: depression HPI Narrative: pt is here for follow up re: depression, body dysmorphic syndrome, panic and anxiety. He has had second opinion with Dr Wolff at [facility]; pt and here to discuss; I do not have a report from Dr Wolff. Pt and want to try auvelity that she recommended; we discussed genesight testing results; pt had brief trial of wellbutin 75mg but may not have actually taken it; PHQ9=7 and GAD7=7 Past Psychiatric History: IPLOC- 2020 at [facility], [place] 2018, [facility] [place] Depression started last 2017 after returning from [place] visiting his son, he misses them (his sons) and doesn't like to travel, stopped going to the [employer] evening bike class and stopped his normal 3 mile walks, stopped playing golf once a week with his friends, stopped reading daily newspaper and stopped watching most TV news. Previously had been on xanax prn his whole adult life - usually only took 3-4 times a week In 2019 pt had no response to TMS. he had consult with Dr. Castillo and he recommended ECT for depression with psychosis; (delusion about IRS); In interim, I spoke with DR yolie De La Rosa re: TMS and Dr. Castillo about ECT consult and impression; Pt did 8-9 sessions of ECT and clearly less depressed although he did not agree with that. He was more spontaneous and more social after ECT. He went golfing several times with friend. out of house more; taking walks with reports. FAILED Medication Trials: lamictal - unknown stopped in hospital celexa-ineffective xanax for over 10 years which he managed very wellbutrin- agitated rexulti- ineffective abilify- ineffective zyprexa-ineffective prozac-ineffective lexapro- orthostatic hypotension Trintellix-ineffective Subjective Subjective Subjective Medication Compliance: Yes Side effects from medications: No Review of Systems Medical Review of Systems: unchanged Mental Status Exam Mental Status Exam Patient Appearance: Well Grooomed and Appropriate Patient Orientation: Person, Place and Situation Level of Consciousness: Awake and Appropriate Patient Behavior: Appropriate, Cooperative and Good Eye Contact Mood Description: Happy, Cheerful and Anxious (mild) Affect Description: Happy, Appropriate, Cheerful, Anxious and Flat Patient Cognition Impaired: No Ability to Follow Directions: Good Speech Pattern: Clear, Appropriate and Coherent Memory Description: Intact Hallucinations: None Delusions: Not Present Thought Process: Intact Thought Content: positive for Intact and positive for Poverty of Content Judgement: Good Assessment and Plan Assessment & Plan (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 Self Management counseling: Exercise, Maintenance-social rhythm, Mod caffeine/ETOH intake, Nutrition education and improvement, Sleep hygiene, General coping skills and Problem solving Medication management counseling: Effectiveness, Side effects, Dosing range, Duration, Drug interaction and Adherence Diagnosis and Prognosis Counseling: Accuracy of diagnosis, Prognosis over time, Impact of diagnosis on life functions, Impact of family relationship, Problematic behaviors secondary to diagnosis and Adequacy of current interventions Details: I spent 40 minutes reviewing the record, seeing the patient and documenting in the medical record. Counseling provided to the patient/caregiver as outlined below. Addressed patient/caregiver concerns regarding current medication regime including effective adherence. Addressed patient/caregiver concerns regarding diagnosis and prognosis including accuracy of diagnosis, prognosis over time, impact of diagnosis. Addressed patient/caregiver concerns regarding impact of recent stressors. [facility] Social History: lives with , 2 adult sons, one grandson Substance History: none Trauma History: none known Coding Level of Care Code Est Pt Level 4 (48409) Diagnoses Body dysmorphic disorder with muscle dysmorphia F45.22 Panic anxiety syndrome F41.0 Major depressive disorder, recurrent, in partial remission F33.41
--- OUTSIDE RECORDS SUMMARY | 2024-12-19 16:25 | XMS_ITS | Clinical Summary ---
Author Organization [facility] Address [address] [place] [address] Care Team Providers Care Automotive Glass Specialist Name Role Phone Esdras Bravo Primary Care Provider [phone] Social History Tobacco Use Types Packs/Day Years Used Date Smoking Tobacco: Never Assessed Sex and Gender Information Value Date Recorded Sex Assigned at Male 09/01/2024 2:22 PM EDT Legal Sex Male 2:18 PM EDT Gender Identity Male 12/14/2024 6:25 PM EDT Sexual Orientation Straight 12/14/2024 6: 25 PM EDT Plan of Treatment Health Maintenance Due Date Last Done Comments Pneumococcal Vaccine: 50+ Years (1 of 1 - PCV) 12/08/1997 Zoster Vaccines (1 of 2) 12/08/1997 RSV Vaccine (60+ years old and patients) (1 - 1-dose 75+ series) 12/08/2022 Alcohol/Substance Use Screening 03/08/2024 Health Care Proxy Review 03/08/2024 COVID-19 Vaccine ( season) 2024 12/22/2022, 02/16/2022, 06/06/2021, Additional history exists Influenza Vaccine (#1) 2024 , 02/16/2022, 10/22/2014 DTaP,Tdap,and Td Vaccines (2 - Td or Tdap) 03/29/2032 03/29/2022 Hepatitis B Vaccines Aged Out No long er eligible based on patient's age to complete [place] [id number] MEDICARE [facility] Care Teams Automotive Glass Specialist Relationship Specialty Start Date End Date Esdras Bravo [address] [place] [address] PCP - General Internal Medicine 09/01/24
== END 2024-12-19 14:14 | disposition home or self-care (01) ==
LOC: HO.HOP 13:35
PROVIDERS: PCP Internal Medicine; Visit Provider Clinical Nurse Specialist Psychiatric/Mental Health
DX: F45.22 Body dysmorphic disorder (principal); F41.0 Panic disorder [episodic paroxysmal anxiety]; F33.41 Major depressive disorder, recurrent, in partial remission
CPT/HCPCS: 99214

== ENCOUNTER → 2024-12-19 13:35 | Outpatient (BNVA) | payer MEDICARE, SELFPAY | PROVIDERS: PCP Internal Medicine; Visit Provider Clinical Nurse Specialist Psychiatric/Mental Health | DX: F33.41 Major depressive disorder, recurrent, in partial remission (principal); F41.0 Panic disorder [episodic paroxysmal anxiety]; F45.22 Body dysmorphic disorder; Z79.899 Other long term (current) drug therapy | CPT/HCPCS: 99212 ==

== ENCOUNTER 2025-01-11 13:06 | Outpatient (AMB) | payer MEDICARE, SELFPAY ==
--- NOTE | 2025-01-11 13:16 | A.OFFPSYCH_ITS ---
Intake Intake Visit Reasons: depression Abrasive Sawyer Required: No Allergies No Known Allergies (No Known Allergies*) Allergy (Unverified 11/23/19 19:15) Medication List - Last Reconciled 01/11/25 by Maryuri Gutierrez APRN alprazolam orally take one tablet three times a day ( 8am, 1pm, and 6pm ) amitriptyline 20 mg (2 x 10 mg) PO BEDTIME latanoprost 0.005% drsachin ophthalmic (eye) lisinopril 2.5 mg PO DAILY olanzapine 2.5 mg PO BEDTIME sertraline 50 mg PO DAILY tamsulosin 0.4 mg PO DAILY HPI- Psychiatric Chief Complaint: depression HPI Narrative: pt is here for follow up re: depression, body dysmorphic syndrome, panic and anxiety. Pt mood improved; he is spontaneous in his interactions and speech; he reports he went [place] recetn[place]; he is getting together with friends on wednesday at his house. His PHQ9=5 and his GAD7=7. He has tapered the sertraline to 100mg and then 50mg he started on 01/03. He is meeting with new therpaist Evelyn Craig once a month. Past Psychiatric History: IPLOC- 2020 at [facility], [place] 2018, [facility] 2019 Depression started last 2017 after returning from [place] visiting his son, he misses them (his sons) and doesn't like to travel, stopped going to the [employer] evening bike class and stopped his normal 3 mile walks, stopped playing golf once a week with his friends, stopped reading daily newspaper and stopped watching most TV news. Previously had been on xanax prn his whole adult life - usually only took 3-4 times a week In 2019 pt had no response to TMS. he had consult with Dr. Castillo and he recommended ECT for depression with psychosis; (delusion about IRS); In interim, I spoke with DR yolie De La Rosa re: TMS and Dr. Castillo about ECT consult and impression; Pt did 8-9 sessions of ECT and clearly less depressed although he did not agree with that. He was more spontaneous and more social after ECT. He went golfing several times with friend. out of house more; taking walks with reports. FAILED Medication Trials: lamictal - unknown stopped in hospital celexa-ineffective xanax for over 10 years which he managed very wellbutrin- agitated rexulti- ineffective abilify- ineffective zyprexa-ineffective prozac-ineffective lexapro- orthostatic hypotension Trintellix-ineffective Subjective Subjective Medication Compliance: Yes Side effects from medications: No Review of Systems Medical Review of Systems: unchanged Mental Status Exam Mental Status Exam Patient Appearance: Well Grooomed and Appropriate Patient Orientation: Person, Place and Situation Level of Consciousness: Awake and Appropriate Patient Behavior: Appropriate, Cooperative and Good Eye Contact Mood Description: Happy, Cheerful and Anxious (mild) Affect Description: Happy, Appropriate, Cheerful, Anxious and Flat Patient Cognition Impaired: No Ability to Follow Directions: Good Speech Pattern: Clear, Appropriate and Coherent Memory Description: Intact Hallucinations: None Delusions: Not Present Thought Process: Intact Thought Content: positive for Intact and positive for Poverty of Content Judgement: Good Assessment and Plan Assessment & Plan (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: Status: Acute Code(s): F45.22 - Body dysmorphic disorder (2) Panic anxiety syndrome: Status: Acute Code(s): F41.0 - Panic disorder [episodic paroxysmal anxiety] (3) Major depressive disorder, recurrent, in partial remission: Status: Acute Code(s): F33.41 - Major depressive disorder, recurrent, in partial remission Plan no changes until 01/15 on 01/15 stop zoloft start auvelity one tab in am continue amitriptline, olanzepin, and alprazolam daily retrun i 4 weeks Medications: New dextromethorphan-bupropion 45-105 mg ER (Auvelity) 1 tab PO QAM 30 ea 1RF Counseling and coordination of Care Pt. Self Management counseling: Exercise, Maintenance-social rhythm, Mod caffeine/ETOH intake, Nutrition education and improvement, Sleep hygiene, General coping skills and Problem solving Medication management counseling: Effectiveness, Side effects, Dosing range, Duration, Drug interaction and Adherence Diagnosis and Prognosis Counseling: Accuracy of diagnosis, Prognosis over time, Impact of diagnosis on life functions, Impact of family relationship, Problematic behaviors secondary to diagnosis and Adequacy of current interventions Details: I spent 30 minutes reviewing the record, seeing the patient and documenting in the medical record. Counseling provided to the patient/caregiver as outlined below. Addressed patient/caregiver concerns regarding current medication regime including effective adherence. Addressed patient/caregiver concerns regarding diagnosis and prognosis including accuracy of diagnosis, prognosis over time, impact of diagnosis. Addressed patient/caregiver concerns regarding impact of recent stressors. [facility] Social History: lives with , 2 adult sons, one grandson Substance History: none Trauma History: none known Coding Level of Care Code Est Pt Level 4 (85483) Diagnoses Body dysmorphic disorder with muscle dysmorphia F45.22 Panic anxiety syndrome F41.0 Major depressive disorder, recurrent, in partial remission F33.41
--- OUTSIDE RECORDS SUMMARY | 2025-01-11 15:59 | XMS_ITS | Clinical Summary ---
Author Organization [facility] Address [address] [place] [address] Care Team Providers Care Helicopter Engineer Name Role Phone Esdras Bravo Primary Care Provider [phone] Social History Tobacco Use Types Packs/Day Years [...] complete [place] [id number] MEDICARE [facility] Care Teams Helicopter Engineer Relationship Specialty Start Date End Date Esdras Bravo [address] [place] [id number] PCP - General Internal Medicine 09/01/24
== END 2025-01-11 13:34 | disposition home or self-care (01) ==
LOC: HO.HOP 13:06
PROVIDERS: PCP Internal Medicine; Visit Provider Clinical Nurse Specialist Psychiatric/Mental Health
DX: F45.22 Body dysmorphic disorder (principal); F41.0 Panic disorder [episodic paroxysmal anxiety]; F33.41 Major depressive disorder, recurrent, in partial remission
CPT/HCPCS: 99214

== ENCOUNTER → 2025-01-11 13:06 | Outpatient (BNVA) | payer MEDICARE, SELFPAY | PROVIDERS: PCP Internal Medicine; Visit Provider Clinical Nurse Specialist Psychiatric/Mental Health | DX: F45.22 Body dysmorphic disorder (principal); F41.0 Panic disorder [episodic paroxysmal anxiety]; F33.41 Major depressive disorder, recurrent, in partial remission | CPT/HCPCS: 99212 ==

== ENCOUNTER 2025-02-08 14:13 | Outpatient (AMB) | payer MEDICARE, SELFPAY ==
--- NOTE | 2025-02-08 14:31 | MHC.OFFVISPS ---
Intake Intake Visit Reasons: depression Credit Clerk Required: No Allergies No Known Allergies (No Known Allergies*) Allergy (Unverified 11/23/19 19:15) Medication List - Last Reconciled 02/08/25 by Maryuri Gutierrez APRN alprazolam orally take one tablet three times a day ( 8am, 1pm, and 6pm ) amitriptyline 20 mg (2 x 10 mg) PO BEDTIME dextromethorphan-bupropion 45-105 mg ER (Auvelity) 1 tab PO QAM latanoprost 0.005% drps ophthalmic (eye) lisinopril 2.5 mg PO DAILY olanzapine 2.5 mg PO BEDTIME tamsulosin 0.4 mg PO DAILY HPI- Psychiatric Chief Complaint: depression HPI Narrative: pt is here for follow up re: depression, body dysmorphic syndrome, panic and anxiety. Pt mood improved; he is more spontaneous in his interactions and speech; he reports he went to [place] the [place] recently; he is getting together with friends on Wednesday at his house. His PHQ9=5 and his GAD7=5. He is tolerating the auvelity without any side effects. He is meeting with new therapist Evelyn Craig once a month. Past Psychiatric History: IPLOC- 2020 at [facility], [place] 2018, [facility] 2019 Depression started last 2017 after returning from [place] visiting his son, he misses them (his sons) and doesn't like to travel, stopped going to the [employer] evening bike class and stopped his normal 3 mile walks, stopped playing golf once a week with his friends, stopped reading daily newspaper and stopped watching most TV news. Previously had been on xanax prn his whole adult life - usually only took 3-4 times a week In 2019 pt had no response to TMS. he had consult with Dr. Castillo and he recommended ECT for depression with psychosis; (delusion about IRS); In interim, I spoke with DR yolie De La Rosa re: TMS and Dr. Castillo about ECT consult and impression; Pt did 8-9 sessions of ECT and clearly less depressed although he did not agree with that. He was more spontaneous and more social after ECT. He went golfing several times with friend. out of house more; taking walks with reports. FAILED Medication Trials: lamictal - unknown stopped in hospital celexa-ineffective xanax for over 10 years which he managed very wellbutrin- agitated rexulti- ineffective abilify- ineffective zyprexa-ineffective prozac-ineffective lexapro- orthostatic hypotension Trintellix-ineffective Subjective Subjective Medication Compliance: Yes Side effects from medications: No Review of Systems Medical Review of Systems: unchanged Mental Status Exam Mental Status Exam Patient Appearance: Well Grooomed and Appropriate Patient Orientation: Person, Place and Situation Level of Consciousness: Awake and Appropriate Patient Behavior: Appropriate, Cooperative and Good Eye Contact Mood Description: Happy, Cheerful and Anxious (mild) Affect Description: Happy, Appropriate, Cheerful, Anxious and Flat Patient Cognition Impaired: No Ability to Follow Directions: Good Speech Pattern: Clear, Appropriate and Coherent Memory Description: Intact Hallucinations: None Delusions: Not Present Thought Process: Intact Thought Content: positive for Intact and positive for Poverty of Content Judgement: Good Assessment and Plan Assessment & Plan (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: Status: Acute Code(s): F45.22 - Body dysmorphic disorder (2) Panic anxiety syndrome: Status: Acute Code(s): F41.0 - Panic disorder [episodic paroxysmal anxiety] (3) Major depressive disorder, recurrent, in partial remission: Status: Acute Code(s): F33.41 - Major depressive disorder, recurrent, in partial remission Plan Increaase auvelity to BID reduce amitriptyline to 10mg at bedtime x 14 days then stop continue olanzepin, and alprazolam daily retrun in 4 weeks Medications: Changed From dextromethorphan-bupropion 45-105 mg ER (Auvelity) 1 tab PO QAM 30 ea 1RF To dextromethorphan-bupropion 45-105 mg ER (Auvelity) 1 tab PO BID 180 ea 1RF Refilled alprazolam orally take one tablet three times a day ( 8am, 1pm, and 6pm ) 90 tabs 2RF olanzapine 2.5 mg PO BEDTIME 30 tabs 2RF Discontinued amitriptyline Discontinued Reason: Doctor's Order 20 mg (2 x 10 mg) PO BEDTIME 180 tabs 1RF Counseling and coordination of Care Pt. Self Management counseling: Exercise, Maintenance-social rhythm, Mod caffeine/ETOH intake, Nutrition education and improvement, Sleep hygiene, General coping skills and Problem solving Medication management counseling: Effectiveness, Side effects, Dosing range, Duration, Drug interaction and Adherence Diagnosis and Prognosis Counseling: Accuracy of diagnosis, Prognosis over time, Impact of diagnosis on life functions, Impact of family relationship, Problematic behaviors secondary to diagnosis and Adequacy of current interventions Details: I spent 35 minutes reviewing the record, seeing the patient and documenting in the medical record. Counseling provided to the patient/caregiver as outlined below. Addressed patient/caregiver concerns regarding current medication regime including effective adherence. Addressed patient/caregiver concerns regarding diagnosis and prognosis including accuracy of diagnosis, prognosis over time, impact of diagnosis. Addressed patient/caregiver concerns regarding impact of recent stressors. [facility] Social History: lives with , 2 adult sons, one grandson Substance History: none Trauma History: none known Coding Level of Care Code Est Pt Level 4 (09896) Diagnoses Body dysmorphic disorder with muscle dysmorphia F45.22 Panic anxiety syndrome F41.0 Major depressive disorder, recurrent, in partial remission F33.41
== END 2025-02-08 14:55 | disposition home or self-care (01) ==
LOC: HO.HOP 14:13
PROVIDERS: PCP Internal Medicine; Visit Provider Clinical Nurse Specialist Psychiatric/Mental Health
DX: F45.22 Body dysmorphic disorder (principal); F41.0 Panic disorder [episodic paroxysmal anxiety]; F33.41 Major depressive disorder, recurrent, in partial remission
CPT/HCPCS: 99214

== ENCOUNTER → 2025-02-08 14:13 | Outpatient (BNVA) | payer MEDICARE, SELFPAY | PROVIDERS: PCP Internal Medicine; Visit Provider Clinical Nurse Specialist Psychiatric/Mental Health | DX: F45.22 Body dysmorphic disorder (principal); F41.0 Panic disorder [episodic paroxysmal anxiety]; F33.41 Major depressive disorder, recurrent, in partial remission | CPT/HCPCS: 99212 ==

== ENCOUNTER 2025-03-06 13:00 | Outpatient (AMB) | payer MEDICARE, SELFPAY ==
--- NOTE | 2025-03-06 13:09 | MHC.OFFVISPS ---
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 Pt mood is much improved; he is more spontaneous in his interactions and speech; he reports he enjoyed a recent visist with his son from [place]. He is looking forward to a new granchild. His other son and are currently at the hospital in labor. Pt is more active at home; he is able to help his more which makes them both feel better. His PHQ9=4 and his GAD7=4. He is tolerating the auvelity without any side effects. He is meeting with therapist Evelyn Craig once a month. Past Psychiatric History: IPLOC- 2020 at [facility], [place] 2019, [facility] [place] Depression started last 2017 after returning from [place] visiting his son, he misses them (his sons) and doesn't like to travel, stopped going to the [employer] evening bike class and stopped his normal 3 mile walks, stopped playing golf once a week with his friends, stopped reading daily newspaper and stopped watching most TV news. Previously had been on xanax prn his whole adult life - usually only took 3-4 times a week In 2019 pt had no response to TMS. he had consult with Dr. Castillo and he recommended ECT for depression with psychosis; (delusion about IRS); In interim, I spoke with DR yolie De La Rosa re: TMS and Dr. Castillo about ECT consult and impression; Pt did 8-9 sessions of ECT and clearly less depressed although he did not agree with that. He was more spontaneous and more social after ECT. He went golfing several times with friend. out of house more; taking walks with reports. FAILED Medication Trials: lamictal - unknown stopped in hospital celexa-ineffective xanax for over 10 years which he managed very wellbutrin- agitated rexulti- ineffective abilify- ineffective zyprexa-ineffective prozac-ineffective lexapro- orthostatic hypotension Trintellix-ineffective Subjective Subjective Medication Compliance: Yes Side effects from medications: No Review of Systems Medical Review of Systems: unchanged Mental Status Exam Mental Status Exam Patient Appearance: Well Grooomed and Appropriate Patient Orientation: Person, Place and Situation Level of Consciousness: Awake, Appropriate and Alert Patient Behavior: Appropriate, Cooperative and Good Eye Contact Mood Description: Happy, Cheerful and Anxious (mild) Affect Description: Happy, Appropriate, Cheerful and Anxious Patient Cognition Impaired: No Ability to Follow Directions: Good Speech Pattern: Clear, Appropriate, Spontaneous Speech and Coherent Memory Description: Intact Hallucinations: None Delusions: Not Present Thought Process: Intact Thought Content: positive for Intact and positive for Poverty of Content Judgement: Good Assessment and Plan Assessment & Plan (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 Self Management counseling: Exercise, Maintenance-social rhythm, Mod caffeine/ETOH intake, Nutrition education and improvement, Sleep hygiene, General coping skills and Problem solving Medication management counseling: Effectiveness, Side effects, Dosing range, Duration, Drug interaction and Adherence Diagnosis and Prognosis Counseling: Accuracy of diagnosis, Prognosis over time, Impact of diagnosis on life functions, Impact of family relationship, Problematic behaviors secondary to diagnosis and Adequacy of current interventions Details: I spent 30 minutes reviewing the record, seeing the patient and documenting in the medical record. Counseling provided to the patient/caregiver as outlined below. Addressed patient/caregiver concerns regarding current medication regime including effective adherence. Addressed patient/caregiver concerns regarding diagnosis and prognosis including accuracy of diagnosis, prognosis over time, impact of diagnosis. Addressed patient/caregiver concerns regarding impact of recent stressors. [facility] Social History: lives with , 2 adult sons, one grandson Substance History: none Trauma History: none known Coding Level of Care Code Est Pt Level 4 (81730) Diagnoses Body dysmorphic disorder with muscle dysmorphia F45.22 Panic anxiety syndrome F41.0 Major depressive disorder, recurrent, in partial remission F33.41
--- OUTSIDE RECORDS SUMMARY | 2025-03-06 16:56 | XMS_ITS | Clinical Summary ---
Author Organization [facility] Address [address] [place] [address] Care Team Providers Care Ware Dresser Name Role Phone Lawrence Esdras Ashley Primary Care Provider [phone] Social History Tobacco Use Types Packs/Day Years Used Date Smoking Tobacco: Never Assessed Sex and Gender Information Value Date Recorded Sex Assigned at Male 09/01/2024 2:22 PM EDT Legal Sex Male 2:18 PM EDT Gender Identity Male 12/14/2024 6:25 PM EDT Sexual Orientation Straight 12/14/2024 6: 25 PM EDT Plan of Treatment Health Maintenance Due Date Last Done Comments Hepatitis C Screening 1945 Medicare AWV 12/08/1946 Pneumococcal Vaccine: 50+ Years (1 of 1 - PCV) 12/08/1997 Zoster Vaccines (1 of 2) 12/08/1997 RSV Vaccine (60+ years old and patients) (1 - 1-dose 75+ series) 12/08/2022 Alcohol/Substance Use Screening 03/08/2024 Depression Screening and Follow-Up 03/08/2024 Fall Risk Screening 03/08/2024 Health Care Proxy Review 03/08/2024 Social Drivers of Health Annual Screening 03/08/2024 Influenza Vaccine (#1) 2024 , 02/16/2022, 10/22/2014 COVID-19 Vaccine (2024- season) 2024 12/22/2022, 02/16/2022, 06/06/2021, Additional history exists DTaP,Tdap,and Td Vaccines (2 - Td or Tdap) 03/29/2032 03/29/2022 Hepatitis B Vaccines Aged Out No long er eligible based on patient's age to complete this topic Insurance MEDICARE [facility] Care Teams Ware Dresser Relationship Specialty Start Date End Date Esdras Bravo [address] [place] [id number] PCP - General Internal Medicine 09/01/24
== END 2025-03-06 13:28 | disposition home or self-care (01) ==
LOC: HO.HOP 13:00
PROVIDERS: PCP Internal Medicine; Visit Provider Clinical Nurse Specialist Psychiatric/Mental Health
DX: F45.22 Body dysmorphic disorder (principal); F41.0 Panic disorder [episodic paroxysmal anxiety]; F33.41 Major depressive disorder, recurrent, in partial remission
CPT/HCPCS: 99214

== ENCOUNTER → 2025-03-06 13:00 | Outpatient (BNVA) | payer MEDICARE, SELFPAY | PROVIDERS: PCP Internal Medicine; Visit Provider Clinical Nurse Specialist Psychiatric/Mental Health | DX: F33.41 Major depressive disorder, recurrent, in partial remission (principal); F45.22 Body dysmorphic disorder; F41.0 Panic disorder [episodic paroxysmal anxiety] | CPT/HCPCS: 99212 ==